=== PATIENT | female | born 1945 | race Caucasian/White ===

== ENCOUNTER → 2017-04-07 | Outpatient (CLI) | payer MEDICARE ==
--- NOTE | 2017-04-07 11:47 | REPMRS ---
Patient History The patient states she had a clinical breast exam in 03/2017. Patient is postmenopausal. No known family history of cancer. Digital Woman Screen Mammo: April 07, 2017 - Exam #: [id number] Bilateral CC and MLO view(s) were taken. Technologist: Rachel Quiroga, Technologist Prior study comparison: April 04, 2016, digital woman screen mammo performed at [facility]. March 29, 2015, digital woman screen mammo performed at [facility]. February 18, 2011, digital bilateral screening mammo performed at [facility]. FINDINGS: The breast tissue is almost entirely fat. There has been no change in the appearance of the mammogram from the prior studies. There is no interval development of dominant mass, architectural distortion, or clustered microcalcification typical of malignancy. ASSESSMENT: BI-RADS/ACR category 1 mammogram. Negative. Recommendation Routine screening mammogram of both breasts in 1 year (for women over age 40). This mammogram was interpreted with the aid of an FDA-approved computer-aided dectection system. Electronically Signed By: Toi Ho MD 04/07/17 3047
== END ==
LOC: M WHC 10:41
PROVIDERS: ATTEND Nurse Practitioner Adult Health
DX: Z12.31 Encounter for screening mammogram for malignant neoplasm of breast (principal); Z78.0 Asymptomatic menopausal state

== ENCOUNTER → 2018-04-08 | Outpatient (CLI) | payer MEDICARE | LOC: M WHC 10:11 | DX: Z12.31 Encounter for screening mammogram for malignant neoplasm of breast (principal) | CPT/HCPCS: 77067 ==

== ENCOUNTER → 2019-04-14 | Outpatient (CLI) | payer MEDICARE ==
--- NOTE | 2019-04-14 12:26 | REPMRS ---
Patient History The patient states she had a clinical breast exam in 03/2019. No known family history of cancer. No Hormone Replacement Therapy 3D TOMOSYNTHESIS WAS PERFORMED. [facility] for [facility] 3.1%. Digital Woman Screen Mammo: April 14, 2019 - Exam #: [id number] Bilateral CC and MLO view(s) were taken. Technologist: Mary De, Technologist Prior study comparison: April 08, 2018, bilateral digital woman screen mammo performed at [facility]. April 07, 2017, digital woman screen mammo performed at [facility]. FINDINGS: There are scattered fibroglandular densities. There has been no change in the appearance of the mammogram from the prior studies. There is a mild amount of residual fibroglandular tissue which is fairly symmetric. There is no interval development of dominant mass, architectural distortion, or clustered microcalcification suggestive of malignancy. Assessment: BI-RADS/ACR category 1 mammogram. Negative Mammogram. Recommendation Routine screening mammogram in 1 year (for women over age 40). This mammogram was interpreted with the aid of an FDA-approved computer-aided dectection system. Electronically Signed By: Orion Bell MD 04/14/19 [id number]
== END ==
LOC: M WHC 11:17
PROVIDERS: ATTEND Nurse Practitioner Adult Health
DX: Z12.31 Encounter for screening mammogram for malignant neoplasm of breast (principal)

== ENCOUNTER → 2020-04-27 | Outpatient (CLI) | payer MEDICARE ==
--- NOTE | 2020-04-27 14:34 | REPMRS ---
Patient History The patient states she had a clinical breast exam in April 2020. No known family history of cancer. No Hormone Replacement Therapy Digital Woman Screen Mammo: April 27, 2020 - Exam #: [id number] Bilateral CC and MLO view(s) were taken. Technologist: Rachael Meade Technologist Prior study comparison: April 14, 2019, bilateral digital woman screen mammo performed at [facility]. April 08, 2018, bilateral digital woman screen mammo performed at [facility]. April 07, 2017, digital woman screen mammo performed at [facility]. FINDINGS: The breast tissue is almost entirely fat. The Volpara volumetric breast density category is: A. There has been no change in the appearance of the mammogram from the prior studies. There is no interval development of dominant mass, architectural distortion, or grouped microcalcification typical of malignancy. 3-D tomosynthesis shows no additional findings. Assessment: BI-RADS/ACR category 1 mammogram. Negative Mammogram. Recommendation Routine screening mammogram of both breasts in 1 year (for women over age 40). This patient's Lifetime Breast Cancer RIsk is estimated at 2.9 %. This mammogram was interpreted with the aid of an FDA-approved computer-aided dectection system. Electronically Signed By: Toi Ho MD 04/27/20 0737
== END ==
LOC: M WHC 09:59
PROVIDERS: ATTEND Nurse Practitioner Adult Health
DX: Z12.31 Encounter for screening mammogram for malignant neoplasm of breast (principal)

== ENCOUNTER → 2020-11-01 | Outpatient (CLI) | payer MEDICARE ==
--- NOTE | 2020-11-01 09:11 | REPVR ---
PROCEDURE INFORMATION: Exam: CT Head Without Contrast Exam date and time: 11/01/2020 8:48 AM Age: 75 years old Clinical indication: Pain; Dizziness; Headache; Additional info: Dizziness w/ ESPINOZA TECHNIQUE: Imaging protocol: Computed tomography of the head without contrast. Radiation optimization: All CT scans at this facility use at least one of these dose optimization techniques: automated exposure control; mA and/or kV adjustment per patient size (includes targeted exams where dose is matched to clinical indication); or iterative reconstruction. COMPARISON: No relevant prior studies available. FINDINGS: Brain: There is no acute intracranial abnormality. Mild small vessel ischemic changes are seen. There is no mass, midline shift, or mass effect. Bell-white matter differentiation is preserved. There is no evidence of hemorrhage. There is no extra-axial fluid collection. Basal cisterns are patent. 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 Cerebral ventricles: Mild prominence of ventricles and sulci representing volume loss. Bones/joints: The visualized osseous structures are unremarkable. Paranasal sinuses: Visualized sinuses are clear. Mastoid air cells: Mastoid air cells are clear. Soft tissues: Unremarkable. IMPRESSION: 1. Mild volume loss and small vessel ischemic changes. 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 2. No acute intracranial abnormality. Electronically signed by: Gabrielle Newton On 11/01/2020 09:11:20 AM
== END ==
LOC: M RAD 08:43
PROVIDERS: ATTEND Nurse Practitioner Adult Health
DX: R51.9 Headache, unspecified (principal)

== ENCOUNTER → 2021-05-20 | Outpatient (CLI) | payer MEDICARE ==
--- NOTE | 2021-05-20 12:55 | REPMRS ---
Patient History The patient states she had a clinical breast exam in December 2020. No known family history of cancer. No Hormone Replacement Therapy Tomosynthesis is performed. Volpara breast density is b. Tyrer-Cuzi lifetime risk of breast cancer 2.7%. Patient states no breast complaints today. Patient has signed MRS History Sheet. Digital Woman Screen Mammo: May 20, 2021 - Exam #: [id number] Bilateral CC and MLO view(s) were taken. Technologist: Laure Neri, Technologist Prior study comparison: April 27, 2020, bilateral digital woman screen mammo performed at [facility]. April 14, 2019, bilateral digital woman screen mammo performed at [facility]. FINDINGS: There are scattered fibroglandular densities. There has been no change in the appearance of the mammogram from the prior studies. There is a mild amount of residual fibroglandular tissue which is fairly symmetric. There is no interval development of dominant mass, architectural distortion, or clustered microcalcification suggestive of malignancy. Assessment: BI-RADS/ACR category 1 mammogram. Negative Mammogram. Recommendation Routine screening mammogram in 1 year (for women over age 40). This mammogram was interpreted with the aid of an FDA-approved computer-aided dectection system. Electronically Signed By: Orion Bell MD 05/20/21 9825
== END ==
LOC: M WHC 11:44
PROVIDERS: ATTEND Nurse Practitioner Adult Health
DX: Z12.31 Encounter for screening mammogram for malignant neoplasm of breast (principal)

== ENCOUNTER → 2022-05-22 | Outpatient (CLI) | payer MEDICARE | LOC: M WHC 10:46 | PROVIDERS: ATTEND Nurse Practitioner Adult Health | DX: Z12.31 Encounter for screening mammogram for malignant neoplasm of breast (principal) ==

== ENCOUNTER 2022-12-02 10:51 | Inpatient (IN) | payer MEDICARE, MEDICAID ==
[~2022-12-02] VITALS: Ht 162.6 cm; Wt 63.6 kg
[2022-12-02] MEDS ORDERED: METF500T13 PO (11:01)
[2022-12-02] MEDS ORDERED: JARD1TAB PO (11:01)
[2022-12-02] MEDS ORDERED: ATOR1TAB21 PO (11:01)
[2022-12-02] MEDS ORDERED: GLIP5TAB8 PO ×2 (11:01→13:33)
[2022-12-02] MEDS ORDERED: DIGO0.123 PO (11:01)
[2022-12-02] MEDS ORDERED: VERA180C3 PO (11:01)
[2022-12-02] MEDS ORDERED: XARE20TA PO (11:01)
[2022-12-02 12:12] LABS: BASO # 0.1 10^3/uL (0.0-0.2); BASO % 0.6 % (0.0-1.0); EOS # 0.1 10^3/uL (0.0-0.5); HEMATOCRIT 42.6 % (36.0-47.0); HEMOGLOBIN 13.7 g/dl (12.0-15.5); LYMPH # 2.1 10^3/uL (1.5-5.0); LYMPH % 17.6 % (24.0-44.0); MEAN CORPUSCULAR HEMOGLOBIN 28.6 pg (27.0-33.0); MEAN CORPUSCULAR HGB CONC 32.2 g/dl (32.0-36.5); MEAN CORPUSCULAR VOLUME 88.9 fl (80.0-96.0); MONO # 0.8 10^3/uL (0.0-0.8); MONO % 6.7 % (2.0-8.0); NEUTROPHILS # 8.9 10^3/uL (1.5-8.5); NEUTROPHILS % 73.4 % (36.0-66.0); PLATELET COUNT, AUTOMATED 200 10^3/uL (150-450); RED BLOOD COUNT 4.79 10^6/uL (4.00-5.40); WHITE BLOOD COUNT 12.1 10^3/uL (4.0-10.0)
[2022-12-02 12:40] LABS: ALBUMIN 4.1 G/DL (3.2-5.2); ALKALINE PHOSPHATASE 78 U/L (46-116); ALT/SGPT 22 U/L (7.0-40); AST/SGOT 33 U/L (<34); BILIRUBIN,TOTAL 0.6 MG/DL (0.3-1.2); BLOOD UREA NITROGEN 24 MG/DL (9-23); CALCIUM LEVEL 9.6 MG/DL (8.3-10.6); CARBON DIOXIDE LEVEL 26 MMOL/L (20-31); CHLORIDE LEVEL 105 MMOL/L (98-107); CREATININE FOR GFR 0.72 MG/DL (0.55-1.30); GLOMERULAR FILTRATION RATE > 60.0 (>39); GLUCOSE, FASTING 91 MG/DL (74-106); POTASSIUM SERUM 5.5 MMOL/L (3.5-5.1); SODIUM LEVEL 140 MMOL/L (136-145); TOTAL PROTEIN 7.3 G/DL (5.7-8.2)
[2022-12-02 12:50] LABS: INR 1.25
[2022-12-02 13:03] LABS: RSV AMPLIFICATION NEGATIVE (NEGATIVE)
[2022-12-02] MEDS ORDERED: LABETALOL 100MG/20ML VIAL IV STA (13:29)
[2022-12-02] MEDS ORDERED: ICAPCAP3 PO (13:33)
[2022-12-02] MEDS ORDERED: VITA100093 PO (13:33)
[2022-12-02] MEDS ORDERED: EQL50TAB2 PO (13:33)
[2022-12-02] MEDS ORDERED: HOME MED LIST COMPLETE! XX SCH (13:35)
[2022-12-02] MEDS ORDERED: **hydrALAZINE HCL** 25 MG TAB PO PRN (13:55)
[2022-12-02] MEDS ORDERED: PERCOCET 5MG/325MG TAB PO PRN ×2 (14:00)
[2022-12-02] MEDS ORDERED: PATIROMER SORBITEX CALCIUM 8.4 GM POWDER PACKET (VELTASSA) PO ONE (14:00)
[2022-12-02] MEDS ORDERED: DEXTROSE 50% 50ML SYRINGE IV PRN (14:00)
[2022-12-02] MEDS ORDERED: GLUCOSE 4GM CHEW TABLET PO PRN (14:00)
[2022-12-02] MEDS ORDERED: GLUCAGON INJ 1MG VIAL SC PRN (14:00)
[2022-12-02] MEDS: INSULIN LISPRO (NovoLOG) PER UNIT SC SCH ×3 (15:23→22:00)
[2022-12-02 15:25] LABS: MAGNESIUM LEVEL 1.7 MG/DL (1.8-2.4)
[2022-12-02] MEDS ORDERED: hydrALAZINE 20MG/ML 1ML VIAL IV PRN (16:45)
[2022-12-02 17:00] VITALS: BP 172/80
[2022-12-02] MEDS: MAG SULF 1GM/100ML (MAG RUN) 1 GM in IV 1 EA IV SCH ×2 (17:17→18:19)
[2022-12-02 17:45] VITALS: BP 160/82
[2022-12-02 20:40] VITALS: BP 118/58
[2022-12-02] MEDS: ATORVASTATIN 20 MG TAB PO SCH (22:00)
[2022-12-02] MEDS: VERAPAMIL 180MG EXTENDED RELEASE TABLET PO SCH (22:00)
[2022-12-02 23:54] VITALS: BP 118/52
[2022-12-03] VITALS (15 sets, daily range): BP systolic 116–142; BP diastolic 52–69; O2SAT 95–98
[2022-12-03 05:35] LABS: HEMATOCRIT 36.9 % (36.0-47.0); HEMOGLOBIN 12.3 g/dl (12.0-15.5); MEAN CORPUSCULAR HEMOGLOBIN 28.9 pg (27.0-33.0); MEAN CORPUSCULAR HGB CONC 33.3 g/dl (32.0-36.5); MEAN CORPUSCULAR VOLUME 86.8 fl (80.0-96.0); PLATELET COUNT, AUTOMATED 176 10^3/uL (150-450); RED BLOOD COUNT 4.25 10^6/uL (4.00-5.40)
[2022-12-03 06:08] LABS: BLOOD UREA NITROGEN 24 MG/DL (9-23); CALCIUM LEVEL 9.7 MG/DL (8.3-10.6); CARBON DIOXIDE LEVEL 25 MMOL/L (20-31); CHLORIDE LEVEL 103 MMOL/L (98-107); CREATININE FOR GFR 0.71 MG/DL (0.55-1.30); GLOMERULAR FILTRATION RATE > 60.0 (>39); GLUCOSE, FASTING 140 MG/DL (74-106); POTASSIUM SERUM 4.1 MMOL/L (3.5-5.1); SODIUM LEVEL 138 MMOL/L (136-145)
[2022-12-03] MEDS: INSULIN LISPRO (NovoLOG) PER UNIT SC SCH ×4 (08:10→20:45)
[2022-12-03] MEDS: VITAMIN D 1,000 INTERNATIONAL UNITS TABLET PO SCH (08:10)
[2022-12-03] MEDS ORDERED: TRANEXAMIC ACID 100 MG/ML 10ML VIAL As Ordered ONE (11:46)
[2022-12-03] MEDS ORDERED: BUPIVACAINE HCL 0.25% 30ML VIAL As Ordered ONE (11:46)
[2022-12-03] MEDS ORDERED: BUPIVACAINE LIPOSOME/PF 1.3% 20ML VIAL (13.3MG/ML)(EXPAREL) As Ordered ONE (11:47)
[2022-12-03] MEDS ORDERED: VANCOMYCIN 1000MG/20ML VIAL As Ordered ONE (11:47)
[2022-12-03] MEDS ORDERED: SUGAMMADEX SODIUM 500 MG/5 ML VIAL (BRIDION) As Ordered ONE (12:08)
[2022-12-03] MEDS ORDERED: propofoL 200 MG/20 ML VIAL As Ordered ONE (12:08)
[2022-12-03] MEDS ORDERED: ROCURONIUM BROMIDE 50MG/5ML VIAL As Ordered ONE (12:08)
[2022-12-03] MEDS ORDERED: LIDOCAINE 2% 100MG/5ML SDV (FOR ANES.) As Ordered ONE (12:08)
[2022-12-03] MEDS ORDERED: ONDANSETRON 4MG 2ML VIAL As Ordered ONE (12:08)
[2022-12-03] MEDS ORDERED: fentaNYL 100 MCG/2 ML INJECTION As Ordered ONE ×2 (12:12→13:07)
[2022-12-03] MEDS ORDERED: ceFAZolin 2 GM/D5W 50 ML IV BAG As Ordered ONE (12:56)
[2022-12-03] MEDS ORDERED: ACETAMINOPHEN 1000MG 100ML IV BAG As Ordered ONE (13:02)
[2022-12-03] MEDS ORDERED: ONDANSETRON 4MG 2ML VIAL IV PRN (14:30)
[2022-12-03] MEDS ORDERED: fentaNYL 100 MCG/2 ML INJECTION IV PRN (14:30)
[2022-12-03] MEDS ORDERED: LR 1,000 ML IV SCH (14:30)
[2022-12-03] MEDS ORDERED: oxyCODONE 5MG TAB PO PRN (14:30)
[2022-12-03] MEDS ORDERED: HYDROMORPHONE HCL 0.5 MG/ 0.5 ML SYRINGE IV PRN (14:30)
[2022-12-03] MEDS ORDERED: METOCLOPRAMIDE INJ 10MG/2ML VIAL IV ONE (15:10)
[2022-12-03] MEDS: ATORVASTATIN 20 MG TAB PO SCH (20:44)
[2022-12-03] MEDS: ceFAZolin SOD 1 GM in D5W MINI-BAG PLUS 50 ML IV SCH (20:44)
[2022-12-03] MEDS: VERAPAMIL 180MG EXTENDED RELEASE TABLET PO SCH (20:44)
[2022-12-03] MEDS: DIGOXIN 0.125 MG TAB PO SCH (21:26)
[2022-12-04] VITALS (12 sets, daily range): BP systolic 110–126; BP diastolic 50–65; O2SAT 92–97
[2022-12-04] MEDS: ceFAZolin SOD 1 GM in D5W MINI-BAG PLUS 50 ML IV SCH ×2 (05:28→12:47)
[2022-12-04 05:37] LABS: BASO % 0.2 % (0.0-1.0); EOS # 0.2 10^3/uL (0.0-0.5); EOS % 0.8 % (0.0-3.0); HEMATOCRIT 32.1 % (36.0-47.0); HEMOGLOBIN 10.7 g/dl (12.0-15.5); LYMPH # 0.8 10^3/uL (1.5-5.0); LYMPH % 4.4 % (24.0-44.0); MEAN CORPUSCULAR HEMOGLOBIN 29.3 pg (27.0-33.0); MEAN CORPUSCULAR HGB CONC 33.3 g/dl (32.0-36.5); MEAN CORPUSCULAR VOLUME 87.9 fl (80.0-96.0); NEUTROPHILS # 15.1 10^3/uL (1.5-8.5); NEUTROPHILS % 83.1 % (36.0-66.0); PLATELET COUNT, AUTOMATED 148 10^3/uL (150-450); RED BLOOD COUNT 3.65 10^6/uL (4.00-5.40); WHITE BLOOD COUNT 18.2 10^3/uL (4.0-10.0)
[2022-12-04 05:56] LABS: BLOOD UREA NITROGEN 33 MG/DL (9-23); CALCIUM LEVEL 8.9 MG/DL (8.3-10.6); CARBON DIOXIDE LEVEL 25 MMOL/L (20-31); CHLORIDE LEVEL 103 MMOL/L (98-107); CREATININE FOR GFR 0.79 MG/DL (0.55-1.30); GLOMERULAR FILTRATION RATE > 60.0 (>39); GLUCOSE, FASTING 176 MG/DL (74-106); MAGNESIUM LEVEL 1.8 MG/DL (1.8-2.4); POTASSIUM SERUM 4.5 MMOL/L (3.5-5.1); SODIUM LEVEL 139 MMOL/L (136-145)
[2022-12-04] MEDS: INSULIN LISPRO (NovoLOG) PER UNIT SC SCH ×4 (07:30→20:49)
[2022-12-04] MEDS: VITAMIN D 1,000 INTERNATIONAL UNITS TABLET PO SCH (08:52)
[2022-12-04] MEDS: RIVAROXABAN 20MG TAB (XARELTO) PO SCH (17:43)
[2022-12-04] MEDS: DIGOXIN 0.125 MG TAB PO SCH (20:53)
[2022-12-04] MEDS: ATORVASTATIN 20 MG TAB PO SCH (20:53)
[2022-12-04] MEDS: VERAPAMIL 180MG EXTENDED RELEASE TABLET PO SCH (20:54)
[2022-12-05 06:00] VITALS: BP 101/53
[2022-12-05 06:13] LABS: BASO % 0.3 % (0.0-1.0); EOS % 0.2 % (0.0-3.0); HEMATOCRIT 30.6 % (36.0-47.0); HEMOGLOBIN 10.1 g/dl (12.0-15.5); LYMPH # 1.5 10^3/uL (1.5-5.0); LYMPH % 11.3 % (24.0-44.0); MEAN CORPUSCULAR HEMOGLOBIN 29.4 pg (27.0-33.0); MEAN CORPUSCULAR VOLUME 89.2 fl (80.0-96.0); MONO % 11.7 % (2.0-8.0); NEUTROPHILS # 10.3 10^3/uL (1.5-8.5); NEUTROPHILS % 75.8 % (36.0-66.0); PLATELET COUNT, AUTOMATED 142 10^3/uL (150-450); RED BLOOD COUNT 3.43 10^6/uL (4.00-5.40); WHITE BLOOD COUNT 13.6 10^3/uL (4.0-10.0)
[2022-12-05 06:34] LABS: BLOOD UREA NITROGEN 29 MG/DL (9-23); CALCIUM LEVEL 8.5 MG/DL (8.3-10.6); CARBON DIOXIDE LEVEL 27 MMOL/L (20-31); CHLORIDE LEVEL 103 MMOL/L (98-107); CREATININE FOR GFR 0.76 MG/DL (0.55-1.30); GLOMERULAR FILTRATION RATE > 60.0 (>39); GLUCOSE, FASTING 152 MG/DL (74-106); POTASSIUM SERUM 4.3 MMOL/L (3.5-5.1); SODIUM LEVEL 138 MMOL/L (136-145)
[2022-12-05 06:46] LABS: MONO # 1.6 10^3/uL (0.0-0.8)
[2022-12-05 07:42] VITALS: BP 102/53
[2022-12-05] MEDS: VITAMIN D 1,000 INTERNATIONAL UNITS TABLET PO SCH (08:59)
[2022-12-05] MEDS: INSULIN LISPRO (NovoLOG) PER UNIT SC SCH ×4 (09:02→20:08)
[2022-12-05 10:58] VITALS: O2SAT 97
[2022-12-05 14:00] VITALS: BP 127/65
[2022-12-05] MEDS: RIVAROXABAN 20MG TAB (XARELTO) PO SCH (17:09)
[2022-12-05 19:37] VITALS: BP 124/64
[2022-12-05] MEDS: ATORVASTATIN 20 MG TAB PO SCH (20:18)
[2022-12-05] MEDS: DIGOXIN 0.125 MG TAB PO SCH (20:18)
[2022-12-05] MEDS: VERAPAMIL 180MG EXTENDED RELEASE TABLET PO SCH (20:18)
[2022-12-06 06:00] VITALS: BP 97/64
[2022-12-06] MEDS: VITAMIN D 1,000 INTERNATIONAL UNITS TABLET PO SCH (08:32)
[2022-12-06] MEDS: INSULIN LISPRO (NovoLOG) PER UNIT SC SCH ×4 (08:32→20:34)
[2022-12-06] MEDS: amLODIPine 5 MG TAB PO SCH (08:35)
[2022-12-06] MEDS: RIVAROXABAN 20MG TAB (XARELTO) PO SCH (17:29)
[2022-12-06] MEDS: ACETAMINOPHEN TAB 650MG DOSE (2X325MG) PO PRN (20:33)
[2022-12-06] MEDS: ATORVASTATIN 20 MG TAB PO SCH (20:33)
[2022-12-06] MEDS: DIGOXIN 0.125 MG TAB PO SCH (20:34)
[2022-12-06] MEDS: VERAPAMIL 180MG EXTENDED RELEASE TABLET PO SCH (20:34)
[2022-12-07 05:50] VITALS: BP 135/83
[2022-12-07] MEDS: amLODIPine 5 MG TAB PO SCH (07:47)
[2022-12-07] MEDS: INSULIN LISPRO (NovoLOG) PER UNIT SC SCH ×4 (07:47→20:10)
[2022-12-07] MEDS: VITAMIN D 1,000 INTERNATIONAL UNITS TABLET PO SCH (07:47)
[2022-12-07] MEDS ORDERED: MOM 30ML SUSPENSION UDC PO PRN (08:10)
[2022-12-07] MEDS: MIRALAX *UNIT DOSE* 17GM PACKET PO SCH (09:03)
[2022-12-07] MEDS: DOCUSATE SODIUM 100MG CAPSULE PO SCH ×2 (09:03→20:10)
[2022-12-07] MEDS: RIVAROXABAN 20MG TAB (XARELTO) PO SCH (17:03)
[2022-12-07] MEDS: VERAPAMIL 180MG EXTENDED RELEASE TABLET PO SCH (20:10)
[2022-12-07] MEDS: DIGOXIN 0.125 MG TAB PO SCH (20:10)
[2022-12-07] MEDS: ATORVASTATIN 20 MG TAB PO SCH (20:10)
[2022-12-07] MEDS: ACETAMINOPHEN TAB 650MG DOSE (2X325MG) PO PRN (20:36)
[2022-12-08 06:04] VITALS: BP 126/75
[2022-12-08] MEDS: MIRALAX *UNIT DOSE* 17GM PACKET PO SCH (08:27)
[2022-12-08 08:28] VITALS: BP 126/75
[2022-12-08] MEDS: amLODIPine 5 MG TAB PO SCH (08:28)
[2022-12-08] MEDS: INSULIN LISPRO (NovoLOG) PER UNIT SC SCH (08:28)
[2022-12-08] MEDS: DOCUSATE SODIUM 100MG CAPSULE PO SCH (08:28)
[2022-12-08] MEDS: VITAMIN D 1,000 INTERNATIONAL UNITS TABLET PO SCH (08:28)
[2022-12-08] MEDS ORDERED: MIRA1POW3 PO (09:15)
[2022-12-08] MEDS ORDERED: AMLO1TAB24 PO (09:15)
== END 2022-12-08 11:00 | disposition home health service (06) | DRG 522 ==
LOC: EDBD 10:51 → M ED 10:51 → M ED INP 13:31 → ENRESERV 15:45 → M PCU 16:49 → M MS5PR 12-04 08:00
PROVIDERS: ADMIT Internal Medicine; ATTEND Internal Medicine
PROC: 0SRR0JZ Replacement of Right Hip Joint, Femoral Surface with Synthetic Substitute, Open Approach (ICD-10-PCS; principal; 2022-12-03 12:00)
DX: S72.001A Fracture of unspecified part of neck of right femur, initial encounter for closed fracture (principal); W18.30XA Fall on same level, unspecified, initial encounter; Y92.028 Other place in mobile home as the place of occurrence of the external cause; Y93.89 Activity, other specified; Y99.8 Other external cause status; I10 Essential (primary) hypertension; I48.91 Unspecified atrial fibrillation; E87.5 Hyperkalemia; E11.9 Type 2 diabetes mellitus without complications; Z66 Do not resuscitate; E55.9 Vitamin D deficiency, unspecified; E78.5 Hyperlipidemia, unspecified; I16.0 Hypertensive urgency; Z79.01 Long term (current) use of anticoagulants; Z79.84 Long term (current) use of oral hypoglycemic drugs; Z79.899 Other long term (current) drug therapy; Z88.0 Allergy status to penicillin; Z88.2 Allergy status to sulfonamides

== ENCOUNTER → 2022-12-17 | Outpatient (CLI) | payer MEDICARE, MEDICAID ==
[~2022-12-17] MED LIST: AMLO1TAB24 PO; ATOR1TAB21 PO; DIGO0.123 PO; EQL50TAB2 PO; GLIP5TAB8 PO; ICAPCAP3 PO; JARD1TAB PO; METF500T13 PO; MIRA1POW3 PO; VERA180C3 PO; VITA100093 PO; XARE20TA PO
== END ==
LOC: M SOG 08:07
PROVIDERS: ATTEND Orthopaedic Surgery
DX: Z47.89 Encounter for other orthopedic aftercare (principal)

== ENCOUNTER → 2023-02-02 | Outpatient (CLI) | payer MEDICARE, MEDICAID | LOC: M SOG 08:11 | PROVIDERS: ATTEND Orthopaedic Surgery | DX: Z96.641 Presence of right artificial hip joint (principal) ==

== ENCOUNTER → 2023-05-27 | Outpatient (CLI) | payer MEDICARE, MEDICAID ==
[~2023-05-27] MED LIST changes: +GLIP5TAB17 PO; -GLIP5TAB8 PO
== END ==
LOC: M WHC 10:53
PROVIDERS: ATTEND Nurse Practitioner Adult Health
DX: Z12.31 Encounter for screening mammogram for malignant neoplasm of breast (principal); M81.0 Age-related osteoporosis without current pathological fracture

== ENCOUNTER → 2023-06-04 | Outpatient (CLI) | payer MEDICARE, MEDICAID | LOC: M SOG 08:13 | PROVIDERS: ATTEND Orthopaedic Surgery | DX: Z96.641 Presence of right artificial hip joint (principal) ==

== ENCOUNTER → 2023-06-11 | Outpatient (CLI) | payer MEDICARE, MEDICAID | LOC: M WHC 08:25 | PROVIDERS: ATTEND Nurse Practitioner Adult Health | DX: R92.322 Mammographic fibroglandular density, left breast (principal); R92.8 Other abnormal and inconclusive findings on diagnostic imaging of breast | CPT/HCPCS: 77065; G0279 ==

== ENCOUNTER → 2023-12-04 | Outpatient (CLI) | payer MEDICARE, MEDICAID ==
[~2023-12-04] MED LIST changes: -MIRA1POW3 PO; +MIRA33506 PO
== END ==
LOC: M SOG 08:49
PROVIDERS: ATTEND Orthopaedic Surgery
DX: Z96.641 Presence of right artificial hip joint (principal)

== ENCOUNTER → 2024-06-13 | Outpatient (CLI) | payer MEDICARE, MEDICAID | LOC: M WHC 09:00 | PROVIDERS: ATTEND Physician Assistant Medical | DX: Z12.31 Encounter for screening mammogram for malignant neoplasm of breast (principal) ==

== ENCOUNTER → 2024-12-02 | Outpatient (CLI) | payer MEDICARE, MEDICAID | LOC: M SOG 07:56 | PROVIDERS: ATTEND Orthopaedic Surgery | DX: Z96.641 Presence of right artificial hip joint (principal); S72.001D Fracture of unspecified part of neck of right femur, subsequent encounter for closed fracture with routine healing ==

== ENCOUNTER → 2025-06-02 | Outpatient (REF) | payer MEDICARE, MEDICAID ==
[~2025-06-02] MED LIST changes: -EQL50TAB2 PO; -VERA180C3 PO; +VERA180C5 PO; +VITA1TAB82 PO
== END ==
LOC: M LAB REF 14:46
PROVIDERS: ATTEND Physician Assistant Medical
DX: N18.31 Chronic kidney disease, stage 3a (principal)

== ENCOUNTER → 2025-06-22 | Outpatient (CLI) | payer MEDICARE, MEDICAID | LOC: M WHC 07:33 | PROVIDERS: ATTEND Physician Assistant Medical | DX: Z12.31 Encounter for screening mammogram for malignant neoplasm of breast (principal); M81.0 Age-related osteoporosis without current pathological fracture ==

== ENCOUNTER → 2025-07-12 | Outpatient (CLI) | payer MEDICARE, MEDICAID | LOC: M WHC 14:34 | PROVIDERS: ATTEND Physician Assistant Medical | DX: R92.8 Other abnormal and inconclusive findings on diagnostic imaging of breast (principal) | CPT/HCPCS: 77065; G0279 ==